=== PATIENT | male | born 1975 | race Caucasian/White ===

== ENCOUNTER 2022-08-25 08:01 | Day surgery (SDC) | payer BC ==
[~2022-08-25 08:01] MED LIST: Sodium Chloride 0.9% 1,000 ML IV SCH
[2022-08-25] MEDS ORDERED: Midazolam 1 MG/ML 2 ML SDV ONE (08:18)
[2022-08-25] MEDS ORDERED: fentaNYL 50 MCG/ML SDV ONE (08:18)
[2022-08-25] MEDS ORDERED: Propofol 200 MG/20 ML SDV ONE ×2 (08:18→09:50)
== END 2022-08-25 10:57 | disposition home or self-care (01) ==
LOC: JP.SDS 08:01
PROVIDERS: ATTEND Surgery
DX: Z12.11 Encounter for screening for malignant neoplasm of colon (principal); D12.4 Benign neoplasm of descending colon; K62.1 Rectal polyp; I10 Essential (primary) hypertension; E78.00 Pure hypercholesterolemia, unspecified; E11.9 Type 2 diabetes mellitus without complications; Z79.899 Other long term (current) drug therapy
CPT/HCPCS: 45380; 45385; 88305; J2250; J2704; J3010; J7030

== ENCOUNTER 2023-01-14 09:55 | Emergency (ER) | payer BC ==
[2023-01-14] MEDS ORDERED: diphenhydrAMINE 50 MG/ML SDV IM ONE (11:12)
[2023-01-14] MEDS ORDERED: methylPREDNISolone Sodium Succinate 125 MG/2 ML SDV IM ONE (11:12)
[2023-01-14] MEDS ORDERED: Famotidine 20 MG Tab PO ONE (11:12)
== END 2023-01-14 12:36 | disposition home or self-care (01) ==
LOC: JP.ED 09:55
DX: T78.3XXA Angioneurotic edema, initial encounter (principal); E78.00 Pure hypercholesterolemia, unspecified; I10 Essential (primary) hypertension; E11.9 Type 2 diabetes mellitus without complications; Z87.891 Personal history of nicotine dependence; Z79.82 Long term (current) use of aspirin; Z79.84 Long term (current) use of oral hypoglycemic drugs; Z79.899 Other long term (current) drug therapy
CPT/HCPCS: 96372; 99283; A9270; J1200; J2930